=== PATIENT | male | born 1950 | race Native Hawaiian/Other Pacific Islander ===

== ENCOUNTER 2016-05-09 08:23 | Outpatient (CLI) | payer OTHER ==
[~2016-05-09 08:23] MED LIST: METF500T PO; NABU500T2 PO
== END 2016-05-09 19:07 | disposition home or self-care (01) ==
LOC: US 08:23
DX: E03.8 Other specified hypothyroidism (principal)

== ENCOUNTER 2016-10-17 09:32 | Outpatient (CLI) | payer OTHER, MEDICARE | END 2016-10-17 19:33 | disposition home or self-care (01) | LOC: US 09:32 | DX: M79.662 Pain in left lower leg (principal); R60.0 Localized edema ==

== ENCOUNTER 2022-10-09 08:36 | Outpatient (CLI) | payer OTHER, MEDICARE ==
[~2022-10-09] VITALS: Ht 177.8 cm; Wt 106.1 kg
[~2022-10-09 08:36] MED LIST changes: +ASA LOW DOSE81 MG PO; +CILOSTAZOL PO; +CLOPIDOGREL75 MG PO; +EUTHYROX50 MCG PO; +GLIM4TAB PO; +HYDROCHLOROT12.5 M1 PO; +LIPITOR40 MG PO; +METF100038 PO; +MOBIC15 MG PO; +OZEMPIC2 MG/1.5 M SC
== END 2022-10-09 19:05 | disposition home or self-care (01) ==
LOC: NM 08:36
PROVIDERS: ATTEND Specialist
DX: I48.91 Unspecified atrial fibrillation (principal); I10 Essential (primary) hypertension; I73.9 Peripheral vascular disease, unspecified
CPT/HCPCS: A9500; J2785

== ENCOUNTER 2022-11-29 08:06 | Outpatient (CLI) | payer OTHER, MEDICARE | END 2022-11-29 18:55 | disposition home or self-care (01) | LOC: LABW 08:06 | PROVIDERS: ATTEND Specialist | DX: E11.9 Type 2 diabetes mellitus without complications (principal); I10 Essential (primary) hypertension | CPT/HCPCS: 36415; 80048 ==

== ENCOUNTER 2022-12-03 07:36 | Outpatient (CLI) | payer OTHER, MEDICARE ==
[2022-12-03 07:51] LABS: POTASSIUM 4.1 mmol/L (3.6-5.2)
== END 2022-12-03 19:28 | disposition home or self-care (01) ==
LOC: LABW 07:36
PROVIDERS: ATTEND Specialist
DX: I10 Essential (primary) hypertension (principal); E11.9 Type 2 diabetes mellitus without complications; I77.89 Other specified disorders of arteries and arterioles
CPT/HCPCS: 36415; 80048